=== PATIENT | female | born 1945 | race Caucasian/White ===

== ENCOUNTER 2016-08-29 11:09 | Emergency (ER) | payer OTHER, MEDICAID ==
[~2016-08-29] VITALS: Ht 160 cm; Wt 102.3 kg
[~2016-08-29 11:09] MED LIST: AMIT10TA13 PO; CARV6.25 PO; CYCL-36 PO; GLIP5 PO; GLUCTAB OR; HYDR-2768 PO; HYDR-3580 PO; IBUP800T23 PO; LORA5SOL3 PO; NAPR550 PO; OMPR20CCR PO; [UNRECOGNIZED DRUG - OTHER]; [UNRECOGNIZED DRUG - SUPPLY] ID; [UNRECOGNIZED DRUG - SUPPLY] INJ; [UNRECOGNIZED DRUG - SUPPLY] SC
[2016-08-29 11:14] VITALS: BP 152/59; PULSE 62; RESP 16; TEMP 98.5; O2SAT 99
[2016-08-29] MEDS ORDERED: PIOG15TA5 PO (11:35)
--- NOTE | 2016-08-29 12:16 | PD ---
HPI Chief Complaint: Musculoskeletal Complaint Time Seen by Provider: 12:00 Travel History International Travel<30 days: No Contact w/Intl Traveler<30days: No Traveled to known affect area: No History of Present Illness HPI 70-year-old female presents to the emergency room for evaluation of right lower extremity pain and swelling after falling last night. Patient states she was climbing up into a tow truck when her muscles gave out and she fell backwards. States she twisted her foot during the fall. The tower climber was standing behind her and caught her so that she did not land on her hip or head. Patient denies pain anywhere else on her body. Cannot localize pain well but states that the majority of it is in her foot. There is also significant pain in the knee which radiates down the entire tib-fib. She has not been able to bear significant weight without pain. Denies lower extremity paresthesias. She took Aleve this morning without relief in symptoms. Patient has chronic right lower extremity pain due to osteoarthritis. PFSH Past Medical History Diabetes: Yes Patient Takes Glucophage: No Diminished Hearing: No Hypertension: Yes Tetanus Vaccination: Unknown Influenza Vaccination: No ?: Not LMP: MATTHEW Past Surgical History Appendectomy: Yes Cholecystectomy: Yes Hysterectomy: Yes Social History Alcohol Use: No Tobacco Use: No Substance Use: No Allergies-Medications (Allergen,Severity, Reaction): Coded Allergies: Diovan (Verified Adverse Reaction, Mild, itch, 08/29/16) Lisinopril (Verified Adverse Reaction, Mild, itching , 08/29/16) Reported Meds & Prescriptions Reported Meds & Active Scripts Active [BP Cuff] 1 U .XX DIRECTED [One Touch Lancets] 100 U SC TID Test glucose levels TID Dx: Diabetes Mellitus type II 250.00 [One Touch Strips] 100 Use ID TID One Touch Test Strips Ultra Blue Dx: Diabetes Mellitus type II 250.00 [One Touch Meter] 1 U INJ TID Use as directed. Dx: Diabetes Mellitus type II 250.00 Reported Pioglitazone (Pioglitazone HCl) 15 Mg Tab 15 Mg PO DAILY Review of Systems Except as stated in HPI: all other systems reviewed are Neg Physical Exam Narrative GENERAL: Well-nourished, morbidly obese female in no acute distress. Afebrile. SKIN: Warm and dry. No erythema or ecchymosis. HEAD: Normocephalic. EYES: No scleral icterus. No injection or drainage. NECK: Supple, trachea midline. No JVD or lymphadenopathy. EXTREMITY: Right rough rice tender to palpation especially over the medial aspect. Full range of motion in right ankle and foot. Limited range of motion in the knee secondary to pain. Mild edema of the right knee. 2+ dorsalis pedis pulse. Data Data Last Documented VS Vital Signs Date Time Temp Pulse Resp B/P Pulse Ox O2 Delivery O2 Flow Rate FiO2 08/29/16 11:14 98.5 62 16 152/59 99 Orders Tibia/Fibula (Ap/Lat) (08/29/16 ) Foot, Complete ([id number]) (08/29/16 ) Knee, Complete (4vws) (08/29/16 ) [facility] Medical Decision Making Medical Screen Exam Complete: Yes Emergency Medical Condition: Yes Medical Record Reviewed: Yes Differential Diagnosis Sprain versus strain versus osteoarthritis Narrative Course 70-year-old female with history of osteoarthritis of the right knee presents to the emergency room for evaluation of right lower extremity pain and swelling after trip and fall last night. Majority of the pain is in the foot but she cannot specifically localize any bony tenderness. Right lower extremity is neurovascularly intact with 2+ dorsalis pedis pulse. Full range of motion of ankle and foot. Limited range of motion in the knee secondary to pain. Ambulatory with pain. X-rays of the tib-fib and foot are negative for acute abnormality. Knee x-ray shows mild joint effusion. Patient discharged with orthopedic instructions and told to follow up with the primary care physician or return for worsening symptoms. Diagnosis Primary Impression: Osteoarthritis of right knee Qualified Code: M17.11 - Primary osteoarthritis of right knee Referrals: Primary Care Physician Patient Instructions: Foot Sprain (ED), General Instructions, Knee Pain (ED) Additional Instructions: Rest and drink plenty of fluids. Take Tylenol with food as directed, as needed for pain. Elevate and apply ice to the affected area for 20 minutes at a time, as needed for pain and swelling. Follow-up with a primary care physician. Return to the emergency room for worsening symptoms. Med/Other Pt SpecificInfo: Prescription(s) given Disposition: 01 DISCHARGE HOME Condition: Stable Ivonne Ham Aug 29, 2016 12:16
--- NOTE | 2016-08-29 14:22 | RADHPO ---
EXAM DATE/TIME: 08/29/2016 12:00 [facility] COMPARISON: FOOT RIGHT COMPLETE ([id number]), August 29, 2016, 11:54. INDICATIONS : Right knee pain after falling. MEDICAL HISTORY : None. SURGICAL HISTORY : None. ENCOUNTER: Initial ACUITY: 2 days PAIN SCORE: 10/10 LOCATION: Right entire knee FINDINGS: Four view examination of the right knee demonstrates no evidence of fracture or dislocation. There a re severe degenerative changes identified in the medial joint line and mild degenerative change withi n the patellofemoral joint. Small joint effusion is present. Bony mineralization is normal. CONCLUSION: Severe degenerative change identified within the medial joint line with small joint effusion. Yarely Self MD on August 29, 2016 at 12:32 Board Certified Radiologist. This report was verified electronically.
--- NOTE | 2016-08-29 14:22 | RADHPO ---
EXAM DATE/TIME: 08/29/2016 11:54 [facility] COMPARISON: CT ABDOMEN & PELVIS W/O CONTRAST, August 08, 2012, 13:18. INDICATIONS : Right foot pain after falling. MEDICAL HISTORY : None. SURGICAL HISTORY : None. ENCOUNTER: Initial ACUITY: 3 days PAIN SCORE: 10/10 LOCATION: Right medial foot FINDINGS: Three view examination of the right foot demonstrates no soft tissue swelling, dislocation, or fractu re. The tarsal bones appear intact. The interphalangeal and metatarsophalangeal joints are intact. The calcaneus is intact. Bony mineralization is normal. CONCLUSION: No acute disease. Yarely Self MD on August 29, 2016 at 12:28 Board Certified Radiologist. This report was verified electronically.
--- NOTE | 2016-08-29 14:23 | RADHPO ---
EXAM DATE/TIME: 08/29/2016 12:02 [facility] COMPARISON: KNEE RIGHT COMPLETE (4VWS), August 29, 2016, 12:00. INDICATIONS : Right lower leg pain after falling MEDICAL HISTORY : None. SURGICAL HISTORY : None. ENCOUNTER: Initial ACUITY: 2 days PAIN SCORE: 10/10 LOCATION: Right entire lower leg FINDINGS: Two view examination of the right tibia demonstrates no evidence of fracture or dislocation. Bony mi neralization is normal. Severe medial joint degenerative change. The soft tissue structures are intac t. CONCLUSION: No evidence of fracture. Yarely Self MD on August 29, 2016 at 12:33 Board Certified Radiologist. This report was verified electronically.
== END 2016-08-29 13:50 | disposition home or self-care (01) ==
LOC: PHEFT 11:09
DX: M17.11 Unilateral primary osteoarthritis, right knee (principal); I10 Essential (primary) hypertension
CPT/HCPCS: 73564; 73590; 73630; 99283